=== PATIENT | male | born 1970 | race African-American/Black ===

== ENCOUNTER → 2018-04-16 | Outpatient (CLI) | payer MEDICAID ==
[~2018-04-16] MED LIST: ACET-2708 PO; BISA10SU8 RC; BISM262T51 PO; CARB200C4 PO; CARB200T6 PO; DIPH1TAB PO; DOCU-100 PO; FOLI-43 PO; MOM PO; PHEN473S12 PO; PSYL PO; VIT B 12 PO
== END | disposition home or self-care (01) ==
LOC: CT 13:04
PROVIDERS: ATTEND Psychiatry & Neurology Neurology
DX: G93.89 Other specified disorders of brain (principal); G91.9 Hydrocephalus, unspecified
CPT/HCPCS: 70450

== ENCOUNTER 2019-04-15 08:46 | Inpatient (IN) | payer MEDICAID ==
[~2019-04-15] VITALS: Ht 152.4 cm; Wt 40.9 kg
[2019-04-15] VITALS (37 sets, daily range): BP systolic 78–150; BP diastolic 39–86
[2019-04-15] MEDS ORDERED: FENTANYL CITRATE/PF 50MCG/ML 2ML VIAL IV ONE (09:00)
[2019-04-15] MEDS ORDERED: SUCCINYLCHOLINE CHLORIDE 200MG/10ML IV ONE (09:00)
[2019-04-15] MEDS ORDERED: ETOMIDATE 2MG/ML 10ML VIAL IV ONE (09:00)
[2019-04-15 09:27] LABS: BASOPHILS % 1.2 % (0.0-2.0); LYMPHOCYTES % 17.7 % (20.0-50.0); MEAN CORPUSCULAR VOLUME 64.9 fL (80.0-94.0); MEAN PLATELET VOLUME 6.8 fl (7.4-10.4); MONOCYTES % 5.9 % (2.0-8.0); NEUTROPHILS % 73.2 % (40.0-76.0); PLATELET 609 x1000/uL (130-400); RED BLOOD CELL COUNT 3.14 mill/uL (4.7-6.1); RED CELL DISTRIBUTION WIDTH 20.6 % (11.6-14.6)
[2019-04-15] MEDS ORDERED: PROPOFOL 10MG/ML 100ML 100 ML IV ONE (09:30)
[2019-04-15 09:31] LABS: CHLORIDE 114 mEq/L (98-107)
[2019-04-15 09:38] LABS: HEMATOCRIT. 20.4 % (42.0-52.0); HEMOGLOBIN. 5.3 g/dL (14.0-18.0)
[2019-04-15 09:54] LABS: PLATELET ESTIMATE INCREASED
[2019-04-15] MEDS ORDERED: SODIUM CHLORIDE 0.9% 1000ML BAG (SEPSIS BOLUS) IV ONE (10:00)
[2019-04-15] MEDS ORDERED: SODIUM BICARBONATE 8.4% 1 MEQ/ML 50ML SYR IV ONE (10:00)
[2019-04-15] MEDS ORDERED: INSULIN REGULAR (HUMULIN R) 300UNITS/3ML IV ONE (10:00)
[2019-04-15] MEDS ORDERED: CALCIUM CHLORIDE 1GM/10ML SYR IV ONE (10:00)
[2019-04-15] MEDS ORDERED: DEXTROSE 50% WATER 50ML SYRINGE IV ONE (10:00)
[2019-04-15] MEDS ORDERED: ALBUTEROL (0.083%) 2.5MG/3ML NEB HHN ONE (10:00)
[2019-04-15] MEDS ORDERED: DEXT 5%/0.45% NACL 1000ML 1,000 ML IV SCH (10:12)
[2019-04-15] MEDS ORDERED: IPRATROPIUM/ALBUTEROL 0.5-3(2.5)MG/3ML NEB INH PRN (10:15)
[2019-04-15] MEDS ORDERED: NA PHOS,M-B/NA PHOS,DI-BA ENEMA 118ML PR PRN (10:15)
[2019-04-15] MEDS ORDERED: CLONIDINE 0.1MG TABLET PO PRN (10:15)
[2019-04-15] MEDS ORDERED: MAGNESIUM/ALUMINUM HYDROXIDE/SIMETHICONE 30ML UDC PO PRN (10:15)
[2019-04-15] MEDS ORDERED: LORAZEPAM 0.5MG TABLET PO PRN (10:15)
[2019-04-15] MEDS ORDERED: DOCUSATE SODIUM 100MG CAPSULE PO PRN (10:15)
[2019-04-15] MEDS ORDERED: HYDROCODONE/ACETAMINOPHEN 5/325MG TABLET PO PRN (10:15)
[2019-04-15] MEDS ORDERED: ONDANSETRON HCL 4MG/2ML INJ IV PRN (10:15)
[2019-04-15] MEDS ORDERED: GUAIFENESIN 200MG/10ML SUGAR FREE UDC PO PRN (10:15)
[2019-04-15 11:06] LABS: BG BASE EXCESS 6.7 mmol/L (-2.0-2.0); BG CARBOXYHEMOGLOBIN 1.4 % (0.5-1.5); BG DEOXYHEMOGLOBIN 0.3 % (0.0-5.0); BG FRACTION INSPIRED OXYGEN 100; BG HCO3 ACT 30.3 mmol/L (22.0-26.0); BG METHEMOGLOBIN 0.4 % (0.0-1.5); BG OXYGEN SATURATION 99.7 % (92.0-98.5); BG OXYHEMOGLOBIN 97.9 % (94.0-97.0); BG PH 7.519 (7.350-7.450); BG PO2 479.5 mmHg (75.0-100.0); BG SAMPLE SITE RIGHT BRACHIAL; BG TIDAL VOLUME(mL) 400 mL; BG TOTAL HEMOGLOBIN 4.7 g/dL (12.0-18.0); BG VENT MODE VENT - A/C; BG VENT RATE 18 set
[2019-04-15] MEDS ORDERED: IPRATROPIUM/ALBUTEROL 0.5-3(2.5)MG/3ML NEB HHN PRN (11:30)
[2019-04-15 12:06] LABS: CHLORIDE 117 mEq/L (98-107)
[2019-04-15 13:16] LABS: BASOPHILS % 0.9 % (0.0-2.0); EOSINOPHILS % 0.6 % (0.0-5.0); LYMPHOCYTES % 10.7 % (20.0-50.0); MEAN CORPUSCULAR HEMOGLOBIN 17.1 pg (28.0-32.0); MEAN CORPUSCULAR VOLUME 63.6 fL (80.0-94.0); MEAN PLATELET VOLUME 6.7 fl (7.4-10.4); MONOCYTES % 6.5 % (2.0-8.0); NEUTROPHILS % 81.3 % (40.0-76.0); PLATELET 477 x1000/uL (130-400); RED BLOOD CELL COUNT 2.99 mill/uL (4.7-6.1); RED CELL DISTRIBUTION WIDTH 20.8 % (11.6-14.6)
[2019-04-15 13:25] LABS: HEMOGLOBIN. 5.1 g/dL (14.0-18.0)
[2019-04-15] MEDS ORDERED: NOREPINEPHRINE 4 MG in DEXT 5% WATER 250 ML IV STA (14:41)
[2019-04-15] MEDS ORDERED: NOREPINEPHRINE 4MG/250ML PMX 250 ML IV NR (15:00)
[2019-04-15] MEDS ORDERED: NOREPINEPHRINE 4 MG in DEXT 5% WATER 246 ML IV PRN (17:00)
[2019-04-15] MEDS: IPRATROPIUM BROMIDE (0.02%) 0.5MG/2.5ML NEB HHN SCH ×2 (17:27→20:09)
[2019-04-15] MEDS: PIPERACILLIN/TAZ 3.375G PREMIX 50 ML IV SCH ×2 (17:45→23:47)
[2019-04-15] MEDS: DEXTROSE 5% WATER 1,000 ML IV SCH (17:52)
[2019-04-15] MEDS ORDERED: IOHEXOL-350 100 ML BOTTLE ONE (21:46)
[2019-04-15 23:38] LABS: HEMATOCRIT 22.8 % (42.0-52.0)
[2019-04-15] MEDS: PROPOFOL 10MG/ML 100ML 100 ML IV PRN (23:48)
[2019-04-16] VITALS (98 sets, daily range): BP systolic 75–135; BP diastolic 36–91
[2019-04-16] MEDS: IPRATROPIUM BROMIDE (0.02%) 0.5MG/2.5ML NEB HHN SCH ×6 (00:05→20:48)
[2019-04-16 05:35] LABS: CHLORIDE 112 mEq/L (98-107)
[2019-04-16 05:45] LABS: LDL CHOLESTEROL 52 mg/dL (5-100)
[2019-04-16 05:46] LABS: BASOPHILS % 0.8 % (0.0-2.0); EOSINOPHILS % 2.3 % (0.0-5.0); HDL CHOLESTEROL 31 mg/dL (40-59); HEMOGLOBIN. 7.3 g/dL (14.0-18.0); LYMPHOCYTES % 7.5 % (20.0-50.0); MEAN CORPUSCULAR VOLUME 68.7 fL (80.0-94.0); MEAN PLATELET VOLUME 6.9 fl (7.4-10.4); MONOCYTES % 6.3 % (2.0-8.0); NEUTROPHILS % 83.1 % (40.0-76.0); PLATELET 400 x1000/uL (130-400); RED BLOOD CELL COUNT 3.49 mill/uL (4.7-6.1); RED CELL DISTRIBUTION WIDTH 23.7 % (11.6-14.6)
[2019-04-16 05:47] LABS: T4 FREE 1.22 ng/dL (0.76-1.46)
[2019-04-16] MEDS: DEXTROSE 5% WATER 1,000 ML IV SCH (06:26)
[2019-04-16] MEDS: PIPERACILLIN/TAZ 3.375G PREMIX 50 ML IV SCH ×4 (06:26→23:29)
[2019-04-16] MEDS: NOREPINEPHRINE 16 MG in DEXT 5% WATER 484 ML IV PRN (06:27)
[2019-04-16] MEDS: LANSOPRAZOLE 15MG DR CAPSULE NG SCH (08:41)
[2019-04-16 08:58] LABS: BG BASE EXCESS 0.4 mmol/L (-2.0-2.0); BG CARBOXYHEMOGLOBIN 1.3 % (0.5-1.5); BG DEOXYHEMOGLOBIN 1.2 % (0.0-5.0); BG FRACTION INSPIRED OXYGEN 40; BG HCO3 ACT 23.7 mmol/L (22.0-26.0); BG METHEMOGLOBIN 0.3 % (0.0-1.5); BG OXYGEN SATURATION 98.8 % (92.0-98.5); BG OXYHEMOGLOBIN 97.2 % (94.0-97.0); BG PCO2 32.1 mmHg (35.0-45.0); BG PH 7.486 (7.350-7.450); BG SAMPLE SITE RIGHT RADIAL; BG TIDAL VOLUME(mL) 400 mL; BG TOTAL HEMOGLOBIN 7.5 g/dL (12.0-18.0); BG VENT MODE VENT - A/C; BG VENT RATE 14 set
[2019-04-16] MEDS ORDERED: KCL 20MEQ/100ML PREMIX 100 ML IV ONE (09:00)
[2019-04-16] MEDS: PROPOFOL 10MG/ML 100ML 100 ML IV PRN ×2 (09:48→17:58)
[2019-04-16] MEDS ORDERED: MAGNESIUM 1 G PREMIX 100 ML IV NR (10:15)
[2019-04-16] MEDS: ACETYLCYSTEINE 100MG/ML 10% VIAL 4ML INH SCH (16:03)
[2019-04-17] VITALS (101 sets, daily range): BP systolic 63–139; BP diastolic 25–94
[2019-04-17] MEDS: ACETYLCYSTEINE 100MG/ML 10% VIAL 4ML INH SCH ×3 (00:40→16:26)
[2019-04-17] MEDS: IPRATROPIUM BROMIDE (0.02%) 0.5MG/2.5ML NEB HHN SCH ×6 (00:41→20:22)
[2019-04-17] MEDS: DEXTROSE 5% WATER 1,000 ML IV SCH ×3 (00:57→22:31)
[2019-04-17] MEDS: PROPOFOL 10MG/ML 100ML 100 ML IV PRN ×3 (04:34→22:34)
[2019-04-17 05:15] LABS: BASOPHILS % 1.3 % (0.0-2.0); HEMATOCRIT. 25.5 % (42.0-52.0); HEMOGLOBIN. 7.6 g/dL (14.0-18.0); LYMPHOCYTES % 12.6 % (20.0-50.0); MEAN CORPUSCULAR HEMOGLOBIN 20.3 pg (28.0-32.0); MEAN CORPUSCULAR VOLUME 68.3 fL (80.0-94.0); MEAN PLATELET VOLUME 6.7 fl (7.4-10.4); MONOCYTES % 6.9 % (2.0-8.0); NEUTROPHILS % 74.2 % (40.0-76.0); PLATELET 364 x1000/uL (130-400); RED BLOOD CELL COUNT 3.73 mill/uL (4.7-6.1); RED CELL DISTRIBUTION WIDTH 24.2 % (11.6-14.6)
[2019-04-17 05:22] LABS: CHLORIDE 105 mEq/L (98-107)
[2019-04-17] MEDS: PIPERACILLIN/TAZ 3.375G PREMIX 50 ML IV SCH ×3 (05:35→18:49)
[2019-04-17] MEDS: LANSOPRAZOLE 15MG DR CAPSULE NG SCH (05:35)
[2019-04-17] MEDS: NOREPINEPHRINE 16 MG in DEXT 5% WATER 484 ML IV PRN (05:36)
[2019-04-17 07:43] LABS: BG BASE EXCESS 7.3 mmol/L (-2.0-2.0); BG DEOXYHEMOGLOBIN 0.8 % (0.0-5.0); BG HCO3 ACT 30.3 mmol/L (22.0-26.0); BG METHEMOGLOBIN 0.2 % (0.0-1.5); BG OXYGEN SATURATION 99.2 % (92.0-98.5); BG PCO2 35.9 mmHg (35.0-45.0); BG PH 7.544 (7.350-7.450); BG PO2 163.3 mmHg (75.0-100.0); BG SAMPLE SITE RIGHT RADIAL; BG TIDAL VOLUME(mL) 400 mL; BG TOTAL HEMOGLOBIN 8.2 g/dL (12.0-18.0); BG VENT MODE VENT - A/C; BG VENT RATE 12 set
[2019-04-17] MEDS ORDERED: POTASSIUM CHLORIDE INJ 40 MEQ in DEXT 5% WATER 500 ML IV NR (09:00)
[2019-04-17 15:47] LABS: HEMATOCRIT 23.5 % (42.0-52.0); HEMOGLOBIN 7.2 g/dL (14.0-18.0)
[2019-04-17 15:56] LABS: TOTAL IRON BINDING CAPACITY 183 ug/dL (250-450)
[2019-04-17] MEDS: FAMOTIDINE 20MG/2ML VIAL IV SCH (21:37)
[2019-04-18] VITALS (96 sets, daily range): BP systolic 78–147; BP diastolic 23–85
[2019-04-18] MEDS: PIPERACILLIN/TAZ 3.375G PREMIX 50 ML IV SCH ×5 (00:22→23:52)
[2019-04-18] MEDS: ACETYLCYSTEINE 100MG/ML 10% VIAL 4ML INH SCH ×3 (00:25→14:09)
[2019-04-18] MEDS: IPRATROPIUM BROMIDE (0.02%) 0.5MG/2.5ML NEB HHN SCH ×6 (00:25→20:59)
[2019-04-18] MEDS: PROPOFOL 10MG/ML 100ML 100 ML IV PRN ×2 (04:44→14:00)
[2019-04-18 05:02] LABS: BASOPHILS % 1.7 % (0.0-2.0); EOSINOPHILS % 5.6 % (0.0-5.0); HEMATOCRIT. 29.6 % (42.0-52.0); HEMOGLOBIN. 9.3 g/dL (14.0-18.0); LYMPHOCYTES % 10.3 % (20.0-50.0); MEAN CORPUSCULAR HEMOGLOBIN 22.3 pg (28.0-32.0); MEAN PLATELET VOLUME 6.9 fl (7.4-10.4); MONOCYTES % 7.4 % (2.0-8.0); PLATELET 363 x1000/uL (130-400); RED BLOOD CELL COUNT 4.16 mill/uL (4.7-6.1); RED CELL DISTRIBUTION WIDTH 24.8 % (11.6-14.6)
[2019-04-18 08:25] LABS: CHLORIDE 106 mEq/L (98-107)
[2019-04-18 08:32] LABS: PHOSPHORUS 3.8 mg/dL (2.5-4.9)
[2019-04-18] MEDS: FAMOTIDINE 20MG/2ML VIAL IV SCH ×2 (09:21→21:42)
[2019-04-18 09:53] LABS: BG BASE EXCESS 8.1 mmol/L (-2.0-2.0); BG CARBOXYHEMOGLOBIN 0.9 % (0.5-1.5); BG DEOXYHEMOGLOBIN 0.8 % (0.0-5.0); BG FRACTION INSPIRED OXYGEN 40; BG HCO3 ACT 31.5 mmol/L (22.0-26.0); BG METHEMOGLOBIN 0.4 % (0.0-1.5); BG OXYGEN SATURATION 99.2 % (92.0-98.5); BG OXYHEMOGLOBIN 97.9 % (94.0-97.0); BG PCO2 39.4 mmHg (35.0-45.0); BG PH 7.521 (7.350-7.450); BG PO2 151.9 mmHg (75.0-100.0); BG SAMPLE SITE LEFT RADIAL; BG TIDAL VOLUME(mL) 400 mL; BG TOTAL HEMOGLOBIN 9.2 g/dL (12.0-18.0); BG VENT MODE VENT - A/C; BG VENT RATE 12 set
[2019-04-18] MEDS: DEXT 5%/0.45% NACL KCL 20MEQ/L 1,000 ML IV SCH ×2 (10:00→23:52)
[2019-04-18] MEDS ORDERED: SORBITOL 70% SOLN 30ML PO NR (17:45)
[2019-04-18] MEDS: SORBITOL 70% SOLN 30ML PO NR (21:47)
[2019-04-19] VITALS (85 sets, daily range): BP systolic 50–140; BP diastolic 23–94
[2019-04-19] MEDS: ACETYLCYSTEINE 100MG/ML 10% VIAL 4ML INH SCH ×3 (00:50→15:22)
[2019-04-19] MEDS: IPRATROPIUM BROMIDE (0.02%) 0.5MG/2.5ML NEB HHN SCH ×6 (00:50→20:29)
[2019-04-19] MEDS: SORBITOL 70% SOLN 30ML PO NR (01:00)
[2019-04-19] MEDS: PROPOFOL 10MG/ML 100ML 100 ML IV PRN ×3 (01:25→19:11)
[2019-04-19] MEDS: MORPHINE SULFATE 2 MG/ML CPJ (NOT FOR IM USE) IV PRN ×2 (02:25→16:07)
[2019-04-19] MEDS: PIPERACILLIN/TAZ 3.375G PREMIX 50 ML IV SCH ×3 (05:11→17:58)
[2019-04-19 05:47] LABS: BASOPHILS % 1.3 % (0.0-2.0); EOSINOPHILS % 5.8 % (0.0-5.0); HEMATOCRIT. 32.5 % (42.0-52.0); HEMOGLOBIN. 9.6 g/dL (14.0-18.0); LYMPHOCYTES % 12.2 % (20.0-50.0); MEAN CORPUSCULAR HEMOGLOBIN 21.7 pg (28.0-32.0); MEAN CORPUSCULAR VOLUME 73.6 fL (80.0-94.0); MONOCYTES % 10.5 % (2.0-8.0); NEUTROPHILS % 70.2 % (40.0-76.0); PLATELET 426 x1000/uL (130-400); RED BLOOD CELL COUNT 4.41 mill/uL (4.7-6.1); RED CELL DISTRIBUTION WIDTH 24.4 % (11.6-14.6)
[2019-04-19 06:48] LABS: CHLORIDE 118 mEq/L (98-107)
[2019-04-19 07:12] LABS: PHOSPHORUS 4.1 mg/dL (2.5-4.9)
[2019-04-19] MEDS: FAMOTIDINE 20MG/2ML VIAL IV SCH ×2 (08:50→20:50)
[2019-04-19] MEDS ORDERED: SORBITOL 70% SOLN 30ML PO NR (10:30)
[2019-04-19 10:35] LABS: BG BASE EXCESS 2.1 mmol/L (-2.0-2.0); BG CARBOXYHEMOGLOBIN 0.3 % (0.5-1.5); BG DEOXYHEMOGLOBIN 1.1 % (0.0-5.0); BG FRACTION INSPIRED OXYGEN 40; BG HCO3 ACT 27.6 mmol/L (22.0-26.0); BG METHEMOGLOBIN 0.2 % (0.0-1.5); BG OXYGEN SATURATION 98.9 % (92.0-98.5); BG OXYHEMOGLOBIN 98.4 % (94.0-97.0); BG PCO2 46.8 mmHg (35.0-45.0); BG PH 7.388 (7.350-7.450); BG PO2 151.9 mmHg (75.0-100.0); BG PRESSURE SUPPORT 10; BG SAMPLE SITE LEFT RADIAL; BG TIDAL VOLUME(mL) 400 mL; BG TOTAL HEMOGLOBIN 10.2 g/dL (12.0-18.0); BG VENT MODE VENT - SIMV; BG VENT RATE 10 set
[2019-04-19] MEDS: DEXT 5% WATER + KCL 20MEQ/L 1,000 ML IV SCH (11:35)
[2019-04-20] VITALS (92 sets, daily range): BP systolic 68–157; BP diastolic 34–93
[2019-04-20] MEDS: PROPOFOL 10MG/ML 100ML 100 ML IV PRN ×3 (00:24→17:31)
[2019-04-20] MEDS: PIPERACILLIN/TAZ 3.375G PREMIX 50 ML IV SCH ×4 (00:25→17:08)
[2019-04-20] MEDS: IPRATROPIUM BROMIDE (0.02%) 0.5MG/2.5ML NEB HHN SCH ×6 (00:31→20:03)
[2019-04-20] MEDS: ACETYLCYSTEINE 100MG/ML 10% VIAL 4ML INH SCH ×3 (00:32→17:09)
[2019-04-20] MEDS: DEXT 5% WATER + KCL 20MEQ/L 1,000 ML IV SCH (03:51)
[2019-04-20 05:45] LABS: BASOPHILS % 2.1 % (0.0-2.0); EOSINOPHILS % 5.4 % (0.0-5.0); HEMATOCRIT. 28.1 % (42.0-52.0); HEMOGLOBIN. 8.5 g/dL (14.0-18.0); LYMPHOCYTES % 12.5 % (20.0-50.0); MEAN CORPUSCULAR HEMOGLOBIN 22.3 pg (28.0-32.0); MEAN CORPUSCULAR VOLUME 73.2 fL (80.0-94.0); MEAN PLATELET VOLUME 6.9 fl (7.4-10.4); MONOCYTES % 9.4 % (2.0-8.0); NEUTROPHILS % 70.6 % (40.0-76.0); PLATELET 417 x1000/uL (130-400); RED BLOOD CELL COUNT 3.83 mill/uL (4.7-6.1); RED CELL DISTRIBUTION WIDTH 25.2 % (11.6-14.6)
[2019-04-20 06:01] LABS: CHLORIDE 110 mEq/L (98-107)
[2019-04-20 08:52] LABS: BG BASE EXCESS 2.4 mmol/L (-2.0-2.0); BG FRACTION INSPIRED OXYGEN 40; BG HCO3 ACT 26.7 mmol/L (22.0-26.0); BG METHEMOGLOBIN 0.3 % (0.0-1.5); BG OXYHEMOGLOBIN 98.7 % (94.0-97.0); BG PCO2 40.4 mmHg (35.0-45.0); BG PH 7.438 (7.350-7.450); BG PO2 145.1 mmHg (75.0-100.0); BG SAMPLE SITE LEFT RADIAL; BG TIDAL VOLUME(mL) 400 mL; BG TOTAL HEMOGLOBIN 9.8 g/dL (12.0-18.0); BG VENT MODE VENT - A/C; BG VENT RATE 12 set
[2019-04-20] MEDS: FAMOTIDINE 20MG/2ML VIAL IV SCH ×2 (09:14→21:56)
[2019-04-20 10:50] LABS: INR 1.2; PROTHROMBIN TIME 12.4 sec (9.6-11.0)
[2019-04-20] MEDS: IRON SUCROSE COMPLEX 100 MG/5 ML ML IV SCH (12:03)
[2019-04-21] VITALS (79 sets, daily range): BP systolic 81–157; BP diastolic 50–94
[2019-04-21] MEDS: IPRATROPIUM BROMIDE (0.02%) 0.5MG/2.5ML NEB HHN SCH ×6 (00:07→20:45)
[2019-04-21] MEDS: ACETYLCYSTEINE 100MG/ML 10% VIAL 4ML INH SCH ×3 (00:07→20:42)
[2019-04-21] MEDS: PIPERACILLIN/TAZ 3.375G PREMIX 50 ML IV SCH ×4 (01:32→17:15)
[2019-04-21] MEDS: PROPOFOL 10MG/ML 100ML 100 ML IV PRN ×3 (04:18→19:41)
[2019-04-21 05:43] LABS: BASOPHILS % 1.3 % (0.0-2.0); EOSINOPHILS % 5.2 % (0.0-5.0); HEMOGLOBIN. 9.4 g/dL (14.0-18.0); LYMPHOCYTES % 9.1 % (20.0-50.0); MEAN CORPUSCULAR HEMOGLOBIN 22.3 pg (28.0-32.0); MEAN CORPUSCULAR VOLUME 73.4 fL (80.0-94.0); MEAN PLATELET VOLUME 7.1 fl (7.4-10.4); MONOCYTES % 7.9 % (2.0-8.0); NEUTROPHILS % 76.5 % (40.0-76.0); PLATELET 466 x1000/uL (130-400); RED BLOOD CELL COUNT 4.22 mill/uL (4.7-6.1); RED CELL DISTRIBUTION WIDTH 25.3 % (11.6-14.6)
[2019-04-21 06:01] LABS: CHLORIDE 109 mEq/L (98-107)
[2019-04-21 06:15] LABS: PHOSPHORUS 2.8 mg/dL (2.5-4.9)
[2019-04-21 07:21] LABS: BG BASE EXCESS 1.9 mmol/L (-2.0-2.0); BG CARBOXYHEMOGLOBIN 0.3 % (0.5-1.5); BG HCO3 ACT 25.5 mmol/L (22.0-26.0); BG METHEMOGLOBIN 0.3 % (0.0-1.5); BG OXYHEMOGLOBIN 98.4 % (94.0-97.0); BG PCO2 36.1 mmHg (35.0-45.0); BG PH 7.467 (7.350-7.450); BG PO2 136.9 mmHg (75.0-100.0); BG SAMPLE SITE RIGHT RADIAL; BG TIDAL VOLUME(mL) 400 mL; BG TOTAL HEMOGLOBIN 10.2 g/dL (12.0-18.0); BG VENT MODE VENT - A/C; BG VENT RATE 12 set
[2019-04-21] MEDS ORDERED: POTASSIUM CHLORIDE 20MEQ/PACKET PO SCH (07:45)
[2019-04-21] MEDS: FAMOTIDINE 20MG/2ML VIAL IV SCH ×2 (08:54→21:36)
[2019-04-21] MEDS: IRON SUCROSE COMPLEX 100 MG/5 ML ML IV SCH (11:07)
[2019-04-21 12:01] LABS: BG BASE EXCESS 0.3 mmol/L (-2.0-2.0); BG CARBOXYHEMOGLOBIN 0.3 % (0.5-1.5); BG DEOXYHEMOGLOBIN 1.1 % (0.0-5.0); BG FRACTION INSPIRED OXYGEN 35; BG HCO3 ACT 24.7 mmol/L (22.0-26.0); BG METHEMOGLOBIN 0.3 % (0.0-1.5); BG OXYGEN SATURATION 98.9 % (92.0-98.5); BG OXYHEMOGLOBIN 98.3 % (94.0-97.0); BG PO2 147.3 mmHg (75.0-100.0); BG PRESSURE SUPPORT 8; BG SAMPLE SITE RIGHT RADIAL; BG TOTAL HEMOGLOBIN 10.1 g/dL (12.0-18.0); BG VENT MODE VENT - CPAP
[2019-04-21] MEDS: DEXAMETHASONE 4MG/ML 1ML VIAL IV SCH (18:31)
[2019-04-22] VITALS (57 sets, daily range): BP systolic 82–174; BP diastolic 42–101
[2019-04-22] MEDS: IPRATROPIUM BROMIDE (0.02%) 0.5MG/2.5ML NEB HHN SCH ×7 (00:36→23:40)
[2019-04-22] MEDS: PROPOFOL 10MG/ML 100ML 100 ML IV PRN ×4 (01:40→22:52)
[2019-04-22 05:58] LABS: HEMATOCRIT. 28.2 % (42.0-52.0); HEMOGLOBIN. 8.6 g/dL (14.0-18.0); MEAN CORPUSCULAR HEMOGLOBIN 22.3 pg (28.0-32.0); MEAN CORPUSCULAR VOLUME 72.8 fL (80.0-94.0); MEAN PLATELET VOLUME 7.4 fl (7.4-10.4); PLATELET 504 x1000/uL (130-400); RED BLOOD CELL COUNT 3.87 mill/uL (4.7-6.1); RED CELL DISTRIBUTION WIDTH 25.5 % (11.6-14.6)
[2019-04-22] MEDS: DEXAMETHASONE 4MG/ML 1ML VIAL IV SCH ×5 (06:00→23:56)
[2019-04-22 06:17] LABS: CHLORIDE 109 mEq/L (98-107)
[2019-04-22] MEDS: PIPERACILLIN/TAZ 3.375G PREMIX 50 ML IV SCH ×3 (06:55→11:54)
[2019-04-22 08:56] LABS: PLATELET ESTIMATE MARKEDLY INCREASED
[2019-04-22] MEDS: RISPERIDONE 0.25MG TABLET PO SCH (09:32)
[2019-04-22] MEDS: IRON SUCROSE COMPLEX 100 MG/5 ML ML IV SCH (09:32)
[2019-04-22] MEDS: FAMOTIDINE 20MG/2ML VIAL IV SCH ×2 (09:32→20:47)
[2019-04-23] VITALS (92 sets, daily range): BP systolic 67–138; BP diastolic 38–103
[2019-04-23] MEDS: IPRATROPIUM BROMIDE (0.02%) 0.5MG/2.5ML NEB HHN SCH ×5 (03:25→21:19)
[2019-04-23] MEDS: PROPOFOL 10MG/ML 100ML 100 ML IV PRN ×3 (04:07→16:33)
[2019-04-23] MEDS: DEXAMETHASONE 4MG/ML 1ML VIAL IV SCH ×2 (05:31→12:15)
[2019-04-23 05:59] LABS: BASOPHILS % 0.4 % (0.0-2.0); HEMATOCRIT. 24.5 % (42.0-52.0); HEMOGLOBIN. 7.5 g/dL (14.0-18.0); LYMPHOCYTES % 9.1 % (20.0-50.0); MEAN CORPUSCULAR HEMOGLOBIN 22.3 pg (28.0-32.0); MEAN CORPUSCULAR VOLUME 72.3 fL (80.0-94.0); MONOCYTES % 5.5 % (2.0-8.0); PLATELET 542 x1000/uL (130-400); RED BLOOD CELL COUNT 3.38 mill/uL (4.7-6.1); RED CELL DISTRIBUTION WIDTH 26.2 % (11.6-14.6)
[2019-04-23 06:21] LABS: CHLORIDE 109 mEq/L (98-107)
[2019-04-23 06:37] LABS: PHOSPHORUS 2.6 mg/dL (2.5-4.9)
[2019-04-23] MEDS: FAMOTIDINE 20MG/2ML VIAL IV SCH ×2 (08:52→21:53)
[2019-04-23] MEDS: RISPERIDONE 0.25MG TABLET PO SCH (08:53)
[2019-04-23] MEDS ORDERED: DOCUSATE SODIUM SUGAR FREE 100MG/10ML UDC NG SCH (09:00)
[2019-04-23] MEDS: IRON SUCROSE COMPLEX 100 MG/5 ML ML IV SCH (09:50)
[2019-04-23] MEDS ORDERED: RACEPINEPHRINE 2.25% 0.5ML NEB VIAL HHN PRN (11:00)
[2019-04-23] MEDS: ACETAMINOPHEN 325MG TABLET PO PRN ×2 (13:04→23:14)
[2019-04-23] MEDS ORDERED: HALOPERIDOL LACTATE 5MG/ML VIAL IM PRN (14:45)
[2019-04-23] MEDS ORDERED: LORAZEPAM 2MG/ML CPJ IV PRN (14:45)
[2019-04-23] MEDS: RISPERIDONE 1MG TABLET NG SCH (21:52)
[2019-04-24] VITALS (60 sets, daily range): BP systolic 94–136; BP diastolic 44–111
[2019-04-24] MEDS: IPRATROPIUM BROMIDE (0.02%) 0.5MG/2.5ML NEB HHN SCH ×5 (00:30→21:00)
[2019-04-24] MEDS: PROPOFOL 10MG/ML 100ML 100 ML IV PRN ×2 (02:35→08:31)
[2019-04-24 06:13] LABS: BASOPHILS % 1.1 % (0.0-2.0); EOSINOPHILS % 1.2 % (0.0-5.0); HEMATOCRIT. 27.7 % (42.0-52.0); HEMOGLOBIN. 8.6 g/dL (14.0-18.0); LYMPHOCYTES % 24.6 % (20.0-50.0); MEAN CORPUSCULAR HEMOGLOBIN 22.5 pg (28.0-32.0); MEAN CORPUSCULAR VOLUME 72.9 fL (80.0-94.0); MEAN PLATELET VOLUME 6.9 fl (7.4-10.4); MONOCYTES % 9.8 % (2.0-8.0); NEUTROPHILS % 63.3 % (40.0-76.0); PLATELET 605 x1000/uL (130-400); RED CELL DISTRIBUTION WIDTH 26.7 % (11.6-14.6)
[2019-04-24 07:13] LABS: CHLORIDE 108 mEq/L (98-107)
[2019-04-24] MEDS ORDERED: MORPHINE SULFATE 250 MG in DEXT 5% WATER 240 ML IV PRN (08:00)
[2019-04-24] MEDS: ACETAMINOPHEN 325MG TABLET PO PRN (08:30)
[2019-04-24] MEDS: FAMOTIDINE 20MG/2ML VIAL IV SCH (08:30)
[2019-04-24] MEDS: RISPERIDONE 1MG TABLET NG SCH (08:30)
[2019-04-24] MEDS ORDERED: MORPHINE SULFATE 2 MG/ML CPJ (NOT FOR IM USE) IV PRN (11:45)
[2019-04-24] MEDS ORDERED: LIDOCAINE HCL/EPINEPHRINE 1%-EPI 1:100,000 20 ML VIAL INFIL NR (18:45)
[2019-04-25] VITALS (14 sets, daily range): BP systolic 99–141; BP diastolic 56–82
[2019-04-25] MEDS: IPRATROPIUM BROMIDE (0.02%) 0.5MG/2.5ML NEB HHN SCH ×2 (08:42→11:45)
[2019-04-25] MEDS: RISPERIDONE 1MG TABLET NG SCH ×2 (09:00→21:00)
[2019-04-25] MEDS: DEXT 5%/0.45% NACL 1000ML 1,000 ML IV SCH (12:30)
[2019-04-26] VITALS: BP 109/67
[2019-04-26] MEDS: DEXT 5%/0.45% NACL 1000ML 1,000 ML IV SCH ×2 (00:37→13:57)
[2019-04-26 04:00] VITALS: BP 116/73
[2019-04-26 07:39] LABS: CHLORIDE 107 mEq/L (98-107)
[2019-04-26 08:00] VITALS: BP 117/72
[2019-04-26] MEDS: IPRATROPIUM BROMIDE (0.02%) 0.5MG/2.5ML NEB HHN SCH ×4 (08:30→21:46)
[2019-04-26] MEDS: RISPERIDONE 1MG TABLET NG SCH ×2 (09:00→20:52)
[2019-04-26 09:43] LABS: HEMATOCRIT. 32.9 % (42.0-52.0); HEMOGLOBIN. 9.9 g/dL (14.0-18.0); MEAN CORPUSCULAR HEMOGLOBIN 22.3 pg (28.0-32.0); MEAN CORPUSCULAR VOLUME 73.6 fL (80.0-94.0); MEAN PLATELET VOLUME 6.6 fl (7.4-10.4); PLATELET 629 x1000/uL (130-400); RED BLOOD CELL COUNT 4.47 mill/uL (4.7-6.1); RED CELL DISTRIBUTION WIDTH 27.5 % (11.6-14.6)
[2019-04-26 11:35] VITALS: BP 109/57
[2019-04-26 16:12] VITALS: BP 116/79
[2019-04-26 20:00] VITALS: BP 100/60
[2019-04-26 21:21] LABS: PLATELET ESTIMATE MARKEDLY INCREASED
[2019-04-27] VITALS (7 sets, daily range): BP systolic 95–114; BP diastolic 49–67
[2019-04-27] MEDS: IPRATROPIUM BROMIDE (0.02%) 0.5MG/2.5ML NEB HHN SCH ×6 (00:47→21:03)
[2019-04-27] MEDS: DEXT 5%/0.45% NACL 1000ML 1,000 ML IV SCH (05:00)
[2019-04-27] MEDS: RISPERIDONE 1MG TABLET NG SCH ×2 (09:00→21:00)
[2019-04-28] VITALS: BP 138/69
[2019-04-28] MEDS: IPRATROPIUM BROMIDE (0.02%) 0.5MG/2.5ML NEB HHN SCH ×5 (00:31→13:19)
[2019-04-28] MEDS: DEXT 5%/0.45% NACL 1000ML 1,000 ML IV SCH ×2 (00:56→10:39)
[2019-04-28 04:00] VITALS: BP 103/66
[2019-04-28 08:00] VITALS: BP 107/63
[2019-04-28] MEDS: RISPERIDONE 1MG TABLET NG SCH (08:29)
[2019-04-28 12:00] VITALS: BP 99/49
[2019-04-28] MEDS ORDERED: ACETAMINOPHEN 650MG SUPP PR PRN (13:45)
[2019-04-28 16:00] VITALS: BP 49/12
== END 2019-04-28 17:17 | DRG 720 ==
LOC: ER 08:46 → MICUNO 10:13 → ENRESERV 14:15 → MICUSO 04-24 13:44 → 6EST 04-25 13:10
PROVIDERS: ADMIT Internal Medicine; ATTEND Internal Medicine
PROC: 5A1955Z Respiratory Ventilation, Greater than 96 Consecutive Hours (ICD-10-PCS; principal; 2019-04-15)
PROC: 05HY33Z Insertion of Infusion Device into Upper Vein, Percutaneous Approach (ICD-10-PCS; 2019-04-15)
PROC: B54MZZA Ultrasonography of Right Upper Extremity Veins, Guidance (ICD-10-PCS; 2019-04-15)
PROC: 0BH17EZ Insertion of Endotracheal Airway into Trachea, Via Natural or Artificial Opening (ICD-10-PCS; 2019-04-15)
PROC: 0DB68ZX Excision of Stomach, Via Natural or Artificial Opening Endoscopic, Diagnostic (ICD-10-PCS; 2019-04-19)
PROC: 30233N1 Transfusion of Nonautologous Red Blood Cells into Peripheral Vein, Percutaneous Approach (ICD-10-PCS; 2019-04-19)
DX: A41.59 Other Gram-negative sepsis (principal); I26.99 Other pulmonary embolism without acute cor pulmonale; J96.01 Acute respiratory failure with hypoxia; J69.0 Pneumonitis due to inhalation of food and vomit; G93.41 Metabolic encephalopathy; E43 Unspecified severe protein-calorie malnutrition; R65.21 Severe sepsis with septic shock; K22.11 Ulcer of esophagus with bleeding; D68.59 Other primary thrombophilia; E87.1 Hypo-osmolality and hyponatremia; E87.0 Hyperosmolality and hypernatremia; D50.9 Iron deficiency anemia, unspecified; E87.5 Hyperkalemia; E87.6 Hypokalemia; G40.909 Epilepsy, unspecified, not intractable, without status epilepticus; B96.1 Klebsiella pneumoniae [K. pneumoniae] as the cause of diseases classified elsewhere; I10 Essential (primary) hypertension; K29.71 Gastritis, unspecified, with bleeding; G80.9 Cerebral palsy, unspecified; R73.9 Hyperglycemia, unspecified; L89.899 Pressure ulcer of other site, unspecified stage; N28.9 Disorder of kidney and ureter, unspecified; Z66 Do not resuscitate; Z74.01 Bed confinement status; Z68.1 Body mass index [BMI] 19.9 or less, adult; Z78.1 Physical restraint status; Z98.2 Presence of cerebrospinal fluid drainage device
CPT/HCPCS: 31500; 36415; 36569; 36600; 71045; 71275; 74018; 76937; 80048; 80061; 82270; 82375; 82728; 82805; 83540; 83550; 83605; 83735; 83880; 84100; 84134; 84145; 84439; 84443; 84478; 84484; 85014; 85018; 86850; 86900; 86920; 87070; 87077; 87186; 88305; 88313; 93005; 93308; 93970; 94002; 94003; 94640; 96374; 96375; 99291; A6261; C1725; J0330; J1100; J1815; J2060; J2270; J2405; J2543; J2704; J3010; J3475; J3480; J3490; J7030; J7050; J7060; J7070; J7608; J7611; P9016; P9021; Q9967